=== PATIENT | female | born 1955 | race Caucasian/White ===

== ENCOUNTER 2016-04-07 14:27 | Outpatient (CLI) | payer BC | END 2016-04-07 14:28 | disposition home or self-care (01) | DX: F41.9 Anxiety disorder, unspecified (principal); N95.9 Unspecified menopausal and perimenopausal disorder; Z79.890 Hormone replacement therapy; E89.0 Postprocedural hypothyroidism ==

== ENCOUNTER 2016-05-05 15:49 | Outpatient (CLI) | payer BC | END 2016-05-05 15:50 | disposition home or self-care (01) | DX: M19.072 Primary osteoarthritis, left ankle and foot (principal) ==

== ENCOUNTER 2016-06-02 16:31 | Outpatient (CLI) | payer BC | END 2016-06-02 16:32 | disposition home or self-care (01) | DX: M50.321 Other cervical disc degeneration at C4-C5 level (principal); M47.812 Spondylosis without myelopathy or radiculopathy, cervical region; M25.511 Pain in right shoulder ==

== ENCOUNTER 2016-07-09 09:51 | Emergency (ER) | payer BC | END 2016-07-09 11:18 | disposition home or self-care (01) | DX: H53.9 Unspecified visual disturbance (principal); R03.0 Elevated blood-pressure reading, without diagnosis of hypertension; E03.9 Hypothyroidism, unspecified; F17.200 Nicotine dependence, unspecified, uncomplicated ==

== ENCOUNTER 2017-04-04 15:00 | Outpatient (CLI) | payer BC ==
--- NOTE | 2017-04-05 18:02 | XRAY Report ---
DATE OF SERVICE: 04/04/2017 TWO VIEW RIGHT RIBS: 04/04/2017 CLINICAL INDICATION: Pain. Oblique views of the right ribs were obtained, with a marker at the site of maximal tenderness. There is no evidence of a displaced rib fracture. No gross pneumothorax is seen. IMPRESSION: No evidence of a displaced rib fracture. TD: 04/05/2017 19:02
== END 2017-04-04 15:01 | disposition home or self-care (01) ==
LOC: DI 15:00
PROVIDERS: ATTEND Physician Assistant Medical
DX: R07.81 Pleurodynia (principal); M81.0 Age-related osteoporosis without current pathological fracture

== ENCOUNTER 2017-06-17 15:51 | Emergency (ER) | payer BC ==
[2017-06-17] MEDS ORDERED: LIDOCAINE VISCOUS 2% 15 ML UDC MM STA (16:23)
[2017-06-17] MEDS ORDERED: MAG HYDROX/AL HYDROX/SIMETH 30 ML UDC PO STA (16:23)
--- NOTE | 2017-06-17 16:25 | ED Physician Documentation ---
PD HPI ABD PAIN - Stated complaint Stated Complaint: ANXIETY/ABD PX - Chief complaint Chief Complaint: Abd Pain - History obtained from History obtained from: Patient, Family - History of Present Illness Timing - onset: Other (For the last several years she has had intermittent episodes of upper abdominal pain that come every month where she is basically debilitated by the pain and she starts crying. Pain is not radiating. She loses her appetite and feels scared to eat during these episodes but denies the pain actually getting worse after she eats. She is a little constipated because she has been taking Xanax and Pepto-Bismol but she is not losing weight. She has never had a colonoscopy.) Review of Systems Ten Systems: 10 systems reviewed and negative Constitutional: denies: Fever, Chills Cardiac: denies: Chest pain / pressure, Palpitations Respiratory: denies: Dyspnea, Cough GI: reports: Abdominal Pain, Nausea. 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 - Present Medications Home Medications: Ambulatory Orders Medication Instructions Recorded Confirmed ALPRAZolam [Xanax] 0.25 mg PO ONCE PRN 10/20/12 07/09/16 Thyroid,Pork [Nature-Throid] mg PO 07/09/16 Omeprazole [PriLOSEC] 20 mg PO DAILY #30 capsule 06/17/17 - Allergies Allergies/Adverse Reactions: Allergies Allergy/AdvReac Type Severity Reaction Status Date / Time No Known Drug Allergies Allergy Verified 06/17/17 16:16 - Social History Does the pt smoke?: Yes Smoking Status: Current every day smoker Does the pt drink ETOH?: No Does the pt have substance abuse?: No - Family History Family history: reports: Non contributory - POLST Patient has POLST: No PD ED PE NORMAL - Vitals Vital signs reviewed: Yes - General General: Alert and oriented X 3, No acute distress - HEENT HEENT: PERRL, EOMI, Ears normal, Moist mucous membranes, Pharynx benign - Neck Neck: Supple, no meningeal sign, No bony TTP - Cardiac Cardiac: RRR, No murmur - Respiratory Respiratory: No respiratory distress, Clear bilaterally - Abdomen Abdomen: Normal bowel sounds, Soft, Other (Mild epigastric TTP) - Back Back: No CVA TTP, No spinal TTP - Derm Derm: Normal color, Warm and dry - Extremities Extremities: No edema, No calf tenderness / cord - Neuro Neuro: Alert and oriented X 3, Normal speech - Psych Psych: Normal mood, Normal affect Results - Vitals Vitals: Vital Signs - 24 hr 06/17/17 06/17/17 06/17/17 16:03 17:25 18:24 Temperature 36.8 C Heart Rate 76 77 70 Respiratory 16 16 16 Rate Blood Pressure 175/81 H 151/82 H 155/81 H O2 Saturation 96 99 98 Oxygen O2 Source Room air - Labs Labs: Laboratory Tests 06/17/17 06/17/17 06/17/17 16:30 16:30 16:30 WBC 10.4 RBC 5.55 H Hgb 16.3 H Hct 47.7 H MCV 86.1 MCH 29.3 MCHC 34.1 RDW 13.4 Plt Count 259 MPV 7.3 L Neut # 6.0 Lymph # 3.5 [place] # 0.5 Eos # 0.3 Baso # 0.1 Absolute Nucleated RBC 0.00 Nucleated RBC % 0.0 Sodium 138 Potassium 3.4 L Chloride 103 Carbon Dioxide 25 Anion Gap 10.0 BUN 10 Creatinine 0.6 Estimated GFR (MDRD) 101 Glucose 96 Calcium 9.8 Total Bilirubin 0.5 AST 22 ALT 18 Alkaline Phosphatase 82 Troponin I < 0.04 Total Protein 8.1 Albumin 4.4 Globulin 3.7 Albumin/Globulin Ratio 1.2 Lipase 14 L - Rads (name of study) CT A?P Radiology: EMP read contemporaneously (Diverticulosis without diverticulitis, hepatic cysts and bilateral adrenal hypertrophy.) PD MEDICAL DECISION MAKING - ED course ED course: 61-year-old woman with recurrent upper abdominal pain with wide differential diagnosis, mild tenderness on examination and no real help with GI cocktail here. Workup negative except for polycythemia likely related to smoking and she was advised to stop. Departure - Departure Disposition: 01 Home, Self Care Clinical Impression: Polycythemia Abdominal pain Qualifiers: Abdominal location: epigastric Qualified Code(s): R10.13 - Epigastric pain Condition: Good Record reviewed to determine appropriate education?: Yes Instructions: ED Abdominal Pain Unkn Cause Prescriptions: Omeprazole [PriLOSEC] 20 mg PO DAILY #30 capsule Comments: Follow-up with your physician, ALEXANDER mcdermott and discuss upper and lower endoscopies. Return for new or worsening symptoms. Your blood pressure was elevated today on check into the emergency department. This does not mean that you have hypertension, it is a common phenomenon to come to the emergency department and have elevated blood pressure. I recommend that you see your primary care physician within the week to have it rechecked when you are feeling better.
[2017-06-17 16:40] LABS: BASOPHILS # (AUTO) 0.1 10^3/uL (0.0-0.1); EOSINOPHILS # (AUTO) 0.3 10^3/uL (0.0-0.7); EOSINOPHILS % (AUTO) 2.6 %; HGB - HEMOGLOBIN 16.3 g/dL (12.0-16.0); LYMPHOCYTES # (AUTO) 3.5 10^3/uL (1.5-3.5); LYMPHOCYTES % (AUTO) 34.1 %; MEAN CORPUSCULAR HEMOGLOBIN 29.3 pg (27.0-31.0); MEAN CORPUSCULAR HGB CONC 34.1 g/dL (32.0-36.0); MEAN CORPUSCULAR VOLUME 86.1 fL (81.0-99.0); MEAN PLATELET VOLUME 7.3 fL (7.9-10.8); MONOCYTES # (AUTO) 0.5 10^3/uL (0.0-1.0); MONOCYTES % (AUTO) 4.4 %; NEUTROPHILS % (AUTO) 57.9 %; PLT - PLATELET COUNT 259 10^3/uL (130-450); RED BLOOD COUNT 5.55 10^6/uL (4.20-5.40); RED CELL DISTRIBUTION WIDTH 13.4 % (12.0-15.0); WHITE BLOOD COUNT 10.4 x10^3/uL (4.8-10.8)
[2017-06-17] MEDS ORDERED: IOPAMIDOL-300 100 ML VIAL ONE (16:44)
[2017-06-17 16:52] LABS: ALBUMIN 4.4 g/dL (3.2-5.5); ALBUMIN/GLOBULIN RATIO 1.2 (1.0-2.2); BILIRUBIN,TOTAL 0.5 mg/dL (0.2-1.0); CALCIUM 9.8 mg/dL (8.5-10.3); CREATININE 0.6 mg/dL (0.4-1.0); TOTAL PROTEIN 8.1 g/dL (6.7-8.2)
[2017-06-17] MEDS ORDERED: IOPAMIDOL-300 100 ML VIAL IVP ONE (17:26)
--- NOTE | 2017-06-17 18:15 | CT Report ---
EXAM: CT ABDOMEN AND PELVIS EXAM DATE: 06/17/2017 05:20 PM. CLINICAL HISTORY: Persistent upper abdomen pain. COMPARISONS: None. TECHNIQUE: Routine helical CT imaging was performed through the abdomen and pelvis. IV contrast: 100 cc of Isovue-300. Enteric contrast: No. Reconstructions: Coronal and sagittal. In accordance with CT protocol optimization, one or more of the following dose reduction techniques w ere utilized for this exam: automated exposure control, adjustment of mA and/or KV based on patient s ize, or use of iterative reconstructive technique. FINDINGS: Lung Bases: Unremarkable. Liver: Multiple cysts up to 4.4 cm size. Gallbladder/Bile Ducts: Unremarkable. Spleen: Normal. Pancreas: Normal. Adrenal Glands: Bilateral hypertrophy. Kidneys: Normal. No masses or hydronephrosis. Peritoneal Cavity/Bowel: Mild diverticulosis. No free fluid, free air or adenopathy. No masses or acu te inflammatory process. The appendix is well visualized and normal. Pelvic Organs: Normal. The bladder and visualized pelvic organs are within normal limits. Vasculature: No aneurysms or other significant abnormality. Bones: No significant abnormality. Other: None. IMPRESSION: 1. Mild diverticulosis without diverticulitis or other acute bowel abnormality. 2. Multiple hepatic cysts. 3. Bilateral adrenal hypertrophy. [facility] Referring Provider Line: [phone] SITE ID: [id number]
[2017-06-17 18:25] VITALS: BP 155/81
== END 2017-06-17 18:53 | disposition home or self-care (01) ==
LOC: ED 15:51
DX: D75.1 Secondary polycythemia (principal); E03.9 Hypothyroidism, unspecified; R03.0 Elevated blood-pressure reading, without diagnosis of hypertension; F17.200 Nicotine dependence, unspecified, uncomplicated
CPT/HCPCS: 36415; 74177; 80053; 83690; 84484; 85025; 99283; 99284; A9270; Q9967

== ENCOUNTER 2018-07-02 06:58 | Emergency (ER) | payer BC ==
--- NOTE | 2018-07-02 07:19 | ED Physician Documentation ---
PD HPI HEENT - Stated complaint Stated Complaint: DIZZY - Chief complaint Chief Complaint: Neuro - History obtained from History obtained from: Patient - History of Present Illness Timing - onset: Yesterday (and worse today when getting up) Timing - details: Abrupt onset, Still present Location: Other (feeling of vertigo with head movement. Had some headache left side around ear yesterday. Chronic tinnitus right ear not changed.) Improves: Other (holding still) Worsens: Position (moving of head) Associated symptoms: Congestion, Headache (yesterday left side of head), Other (feeling off balance with walking. Does not feel fumbly with hand movements otherwise.). No: Fever, Rhinorrhea, Swollen nodes, Facial swelling Similar symptoms before: Has not had sx before Recently seen: Not recently seen Review of Systems Constitutional: denies: Fever, Chills, Myalgias Ears: reports: Tinnitus/ringing (right ear chronically) Nose: denies: Rhinorrhea / runny nose, Congestion Throat: denies: Sore throat Respiratory: denies: Dyspnea, Cough GI: reports: Nausea (with the vertigo). 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 - Present Medications Home Medications: Ambulatory Orders Medication Instructions Recorded Confirmed ALPRAZolam [Xanax] 0.25 mg PO ONCE PRN 10/20/12 07/09/16 Thyroid,Pork [Nature-Throid] mg PO 07/09/16 Omeprazole [PriLOSEC] 20 mg PO DAILY #30 capsule 06/17/17 Cephalexin [Keflex] 500 mg PO TID #21 capsule 07/02/18 Dexamethasone [Decadron] 4 mg PO DAILY #5 tablet 07/02/18 Meclizine HCl [Motion Sickness 25 mg PO Q6H PRN #30 tablet 07/02/18 Relief] - Allergies Allergies/Adverse Reactions: Allergies Allergy/AdvReac Type Severity Reaction Status Date / Time No Known Drug Allergies Allergy Verified 06/17/17 16:16 - Social History Does the pt smoke?: Yes Smoking Status: Current every day smoker Does the pt drink ETOH?: No Does the pt have substance abuse?: No - POLST Patient has POLST: No PD ED PE NORMAL - Vitals Vital signs reviewed: Yes - General General: Alert and oriented X 3, Well developed/nourished - HEENT HEENT: PERRL, EOMI (with nystagmus noted to the left), Ears normal, Moist mucous membranes, Pharynx benign - Neck Neck: Supple, no meningeal sign, No adenopathy - Cardiac Cardiac: RRR, No murmur - Respiratory Respiratory: No respiratory distress, Clear bilaterally - Abdomen Abdomen: Soft, Non tender - Back Back: No CVA TTP - Derm Derm: Normal color, Warm and dry, No rash - Extremities Extremities: No tenderness to palpate, Normal ROM s pain - Neuro Neuro: Alert and oriented X 3, road crossing guard 2-12 intact, No motor deficit, No sensory deficit, Normal speech, Other (normal snuff maker and fine motor activity of hands. Does not seem fumbly. ) Results - Vitals Vitals: Oxygen O2 Source Room air - Labs Labs: Laboratory Tests 07/02/18 07/02/18 07/02/18 07:08 07:08 07:08 WBC 7.6 RBC 5.13 Hgb 15.3 Hct 45.9 MCV 89.5 MCH 29.8 MCHC 33.2 RDW 13.2 Plt Count 241 MPV 8.3 Neut # (Auto) 3.3 Lymph # (Auto) 3.4 [place] # (Auto) 0.4 Eos # (Auto) 0.4 Baso # (Auto) 0.1 Absolute Nucleated RBC 0.00 Nucleated RBC % 0.0 ESR 3 Sodium 136 Potassium 3.6 Chloride 100 L Carbon Dioxide 26 Anion Gap 10.0 BUN 22 H Creatinine 0.6 Estimated GFR (MDRD) 101 Glucose 109 H Calcium 9.3 Total Bilirubin 0.5 AST 25 ALT 20 Alkaline Phosphatase 74 Total Protein 7.8 Albumin 4.3 Globulin 3.5 Albumin/Globulin Ratio 1.2 Lipase 36 - Rads (name of study) head CT Radiology: Prelim report reviewed (some mastoid fluid, sinus mucosal thickening. ) PD MEDICAL DECISION MAKING - ED course Complexity details: considered differential (sounds like peripheral vertigo. Had headache left side yesterday, so CT done to look for mass effect, bleeding and this was negative. It did show mastoid fluid and sinusitis. So presume some labrynthitis. As such, Korina's would not be of benefit. ), d/w patient Departure - Departure Disposition: 01 Home, Self Care Clinical Impression: Vertigo Sinusitis, acute Qualifiers: Sinusitis location: unspecified location Recurrence: non-recurrent Qualified Code(s): J01.90 - Acute sinusitis, unspecified Condition: Stable Record reviewed to determine appropriate education?: Yes Instructions: ED Vertigo Unspecified Follow-Up: Imelda Saini ND [Primary Care Provider] - Prescriptions: Cephalexin [Keflex] 500 mg PO TID #21 capsule Dexamethasone [Decadron] 4 mg PO DAILY #5 tablet Meclizine HCl [Motion Sickness Relief] 25 mg PO Q6H PRN #30 tablet PRN Reason: Vertigo Comments: The scan showed some inflammation of the sinuses. There was a little bit of fluid in the mastoid area on the left. I presume there is some inflammation as well in the inner ear causing your symptoms (labrynthitis). Use meclizine every 6-8 hours if needed for dizziness. Usesome Decadron daily for 5 days for inflammation. I presume there is some element of infection to it as well so the cephalexin for a week. Use probiotics concurrently to minimize the stomach upset. Stay well-hydrated. Recheck if not improving over the next few days. Discharge Date/Time: 07/02/18 09:45
[2018-07-02] MEDS ORDERED: MECLIZINE 12.5 MG TABLET PO STA (07:43)
[2018-07-02] MEDS ORDERED: DEXAMETHASONE 10 MG/ML VIAL IVP STA (07:43)
[2018-07-02 07:50] LABS: BASOPHILS # (AUTO) 0.1 10^3/uL (0.0-0.1); BASOPHILS % (AUTO) 0.9 %; EOSINOPHILS # (AUTO) 0.4 10^3/uL (0.0-0.7); EOSINOPHILS % (AUTO) 5.7 %; HGB - HEMOGLOBIN 15.3 g/dL (12.0-16.0); LYMPHOCYTES # (AUTO) 3.4 10^3/uL (1.5-3.5); LYMPHOCYTES % (AUTO) 45.1 %; MEAN CORPUSCULAR HEMOGLOBIN 29.8 pg (27.0-31.0); MEAN CORPUSCULAR HGB CONC 33.2 g/dL (32.0-36.0); MEAN CORPUSCULAR VOLUME 89.5 fL (81.0-99.0); MEAN PLATELET VOLUME 8.3 fL (7.9-10.8); MONOCYTES # (AUTO) 0.4 10^3/uL (0.0-1.0); MONOCYTES % (AUTO) 4.8 %; NEUTROPHILS # (AUTO) 3.3 10^3/uL (1.5-6.6); NEUTROPHILS % (AUTO) 43.5 %; PLT - PLATELET COUNT 241 10^3/uL (130-450); RED BLOOD COUNT 5.13 10^6/uL (4.20-5.40); RED CELL DISTRIBUTION WIDTH 13.2 % (12.0-15.0); WHITE BLOOD COUNT 7.6 x10^3/uL (4.8-10.8)
[2018-07-02 08:02] LABS: ALBUMIN 4.3 g/dL (3.2-5.5); ALBUMIN/GLOBULIN RATIO 1.2 (1.0-2.2); BILIRUBIN,TOTAL 0.5 mg/dL (0.2-1.0); CALCIUM 9.3 mg/dL (8.5-10.3); CREATININE 0.6 mg/dL (0.4-1.0); TOTAL PROTEIN 7.8 g/dL (6.7-8.2)
--- NOTE | 2018-07-02 08:40 | CT Report ---
Reason: headache yesterday; dizzy today Procedure Date: 07/02/2018 Accession Number: [id number] / [id number] Procedure: CT - HEAD WO CPT Code: FULL RESULT: EXAM: CT HEAD EXAM DATE: 07/02/2018 08:25 AM. CLINICAL HISTORY: Headache yesterday; dizzy today. COMPARISON: None. TECHNIQUE: Multiaxial CT images were obtained from the foramen magnum to the vertex. Reformats: Sagittal and coronal. IV contrast: None. In accordance with CT protocol optimization, one or more of the following dose reduction techniques were utilized for this exam: automated exposure control, adjustment of mA and/or KV based on patient size, or use of iterative reconstructive technique. FINDINGS: Parenchyma: No intraparenchymal hemorrhage. No evidence of mass, midline shift, or CT findings of infarction. Will-white differentiation is distinct. Extraaxial Spaces: Prominent subarachnoid space along the frontal lobes bilaterally. No subdural or epidural collections identified. Ventricles: Normal in size and position. Sinuses and Orbits: Mucosal thickening in the bilateral ethmoid and right sphenoid sinus. . There is a small amount of fluid in the left mastoid tip Bones: No evidence of fracture or calvarial defect. Other: Calcified subcutaneous nodule posterior right scalp. IMPRESSION: 1. No acute bleed, no acute infarct. [facility]
[2018-07-02] MEDS ORDERED: cephALEXin 250 MG CAPSULE PO STA (09:26)
[2018-07-02 09:33] VITALS: BP 139/61
== END 2018-07-02 09:45 | disposition home or self-care (01) ==
LOC: ED 06:58
DX: J01.90 Acute sinusitis, unspecified (principal); E03.9 Hypothyroidism, unspecified; F17.200 Nicotine dependence, unspecified, uncomplicated
CPT/HCPCS: 36415; 70450; 80053; 83690; 85025; 85651; 93005; 96374; 99284; A9270

== ENCOUNTER 2018-07-08 13:05 | Outpatient (CLI) | payer BC ==
--- NOTE | 2018-07-08 15:42 | XRAY Report ---
Reason: LOW BACK PAIN Procedure Date: 07/08/2018 Accession Number: [id number] / [id number] Procedure: XR - Lumbar Spine 2 View CPT Code: FULL RESULT: EXAM: LUMBOSACRAL SPINE RADIOGRAPHY EXAM DATE: 07/08/2018 01:34 PM. CLINICAL HISTORY: Low back pain. COMPARISONS: LUMBAR SPINE COMPLETE 09/25/2012 1:02 PM. TECHNIQUE: 2 views. FINDINGS: Alignment: Interval development of minimal thoracolumbar scoliosis, dextroconvex centered about L1-L2. No listhesis. Bones: The bones are qualitatively osteopenic; this limits evaluation for underlying fractures or masses. Five [id number] lumbar vertebral bodies are present. No fractures or bone lesions. Disks: Normal. Disk heights are maintained. Facets: Moderate facet arthropathy predominantly at L5. Sacroiliac Joints: Unremarkable. Soft Tissues: Aortic calcifications. IMPRESSION: Degenerative changes as described. [facility]
== END 2018-07-08 13:06 | disposition home or self-care (01) ==
LOC: DI 13:05
PROVIDERS: ATTEND Naturopath
DX: M41.85 Other forms of scoliosis, thoracolumbar region (principal); M85.88 Other specified disorders of bone density and structure, other site
CPT/HCPCS: 72100

== ENCOUNTER 2019-05-15 23:25 | Emergency (ER) | payer BC ==
[2019-05-15 23:34] VITALS: BP 128/87
--- NOTE | 2019-05-15 23:42 | ED Physician Documentation ---
History of Present Illness - Stated complaint Stated Complaint: COUGH/CONGESTION - Chief complaint Chief Complaint: Resp - Additonal information Additional information: This is a 63-year-old female with a history of hypothyroidism after thyroid radiation for Graves' disease, who presents with right-sided lower rib pain after coughing. Patient developed a cough 4 days ago, has been productive of some clear to light yellow sputum, she is felt a bit congested as well, but overall felt she was managing well at home, until earlier today she had a coughing fit and developed some sharp pain on her right lower anterior ribs. She was at rest she has no pain but if she pushes in on the spot or if she coughs she has a sharp jolt of pain in the area. She has no central or left- sided chest pain. No leg swelling or redness. No hemoptysis. 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 - Present Medications Home Medications: Ambulatory Orders Medication Instructions Recorded Confirmed Thyroid,Pork [Nature-Throid] 32.5 mg PO DAILY 07/09/16 Doxycycline Hyclate 100 mg PO BID #14 capsule 05/16/19 - Allergies Allergies/Adverse Reactions: Allergies Allergy/AdvReac Type Severity Reaction Status Date / Time ciprofloxacin [From Cipro] AdvReac Nausea Verified 05/15/19 23:38 - Social History Does the pt smoke?: Yes Smoking Status: Current every day smoker Does the pt drink ETOH?: No Does the pt have substance abuse?: No - POLST Patient has POLST: No PD ED PE NORMAL - Vitals Vital signs reviewed: Yes - General General: Alert and oriented X 3, No acute distress - HEENT HEENT: PERRL - Neck Neck: Supple, no meningeal sign - Cardiac Cardiac: RRR, No murmur - Respiratory Respiratory: No respiratory distress, Clear bilaterally, Other (Intermittent cough, when she coughs she appears uncomfortable. There is reproducible te nderness in the right lower anterior ribs. No rash or bruising.) - Abdomen Abdomen: Normal bowel sounds, Soft, Non tender, Non distended - Derm Derm: Warm and dry - Extremities Extremities: No deformity - Neuro Neuro: Alert and oriented X 3 - Psych Psych: Normal mood, Normal affect Results - Vitals Vitals: Vital Signs - 24 hr 05/15/19 23:25 Temperature 37.3 C Heart Rate 99 Respiratory 18 Rate Blood Pressure 128/87 H O2 Saturation 96 Oxygen O2 Source Room air PD MEDICAL DECISION MAKING - ED course Complexity details: considered differential (Rib contusion, rib fracture, pneumothorax, muscle strain, pneumonia, URI) ED course: On arrival patient is nontoxic-appearing, vital signs are unremarkable and she is saturating well on room air, she has breath sounds present bilaterally and she has reproducible tenderness over the right anterior lower ribs. PE was considered, however patient's pain only occurs when she coughs, and she is reproducible point tenderness in the region, additionally her heart rate and oxygen saturation are excellent, and she has no signs of DVT. This appears to be musculoskeletal. She has no central or left-sided chest pain, her symptoms and history are not consistent with ACS. X-ray of the chest was obtained and shows No displaced rib fracture or pneumothorax, there is a lingular infiltrate. I do not think that the lingular infiltrate is the primary cause of patient's pain given that she has reproducible focal tenderness on her lower anterior ribs and her pain is only present when she is coughing. She likely has a small nondisplaced rib fracture or inflammation of the chest wall, in addition to this lingular infiltrate. I discussed these findings with the patient, and also discussed pain control, she strongly would like to avoid any NSAIDs, Stronger pain medications, or muscle relaxants such as methocarbamol She will continue to use her Tylenol and lidocaine on The region of pain. I also prescribed doxycycline for the lingular infiltrate. I discussed PCP follow-up as well as return precautions and patient was discharged home in good condition in the care of her Departure - Departure Disposition: 01 Home, Self Care Clinical Impression: Rib pain on right side Pneumonia Qualifiers: Pneumonia type: due to unspecified organism Laterality: right Lung location: unspecified part of lung Qualified Code(s): J18.9 - Pneumonia, unspecified organism Condition: Good Follow-Up: Imelda Saini ND [Primary Care Provider] - Prescriptions: Doxycycline Hyclate 100 mg PO BID #14 capsule Comments: You were seen today for pain in your right lower chest. Your x-ray did not show signs of displaced rib fractures or a collapsed lung, but it did show what appears to be early pneumonia in the lung. As we discussed, please continue to use the Tylenol and lidocaine for your chest discomfort, The goal is to get adequate pain control that you are able to take deep breaths. I am prescribing a course of antibiotics for the pneumonia. If you are having worsening symptoms such as difficulty breathing, coughing up blood, or worsening/changing chest pain, return to the emergency department.
--- NOTE | 2019-05-16 00:22 | XRAY Report ---
Reason: cough, R lower rib pain after coughing fit Procedure Date: 05/16/2019 Accession Number: [id number] / [id number] Procedure: XR - Chest 2 View X-Ray CPT Code: 79065 Final Report FULL RESULT: EXAM: CHEST RADIOGRAPHY EXAM DATE: 05/16/2019 12:05 AM. CLINICAL HISTORY: Cough, R lower rib pain after coughing fit. COMPARISON: RIBS 2 VIEW RT 04/04/2017 3:05 PM CHEST 2 VIEW PA/LAT 06/04/2014 11:58 AM. TECHNIQUE: 2 views. FINDINGS: Lungs/Pleura: Patchy lingular infiltrate. No effusion or pneumothorax. Mediastinum: Heart and mediastinal contours are unremarkable. Other: None. IMPRESSION: Patchy lingular infiltrate. [facility]
== END 2019-05-16 01:00 | disposition home or self-care (01) ==
LOC: ED 23:25
DX: R07.81 Pleurodynia (principal); J18.9 Pneumonia, unspecified organism; F17.200 Nicotine dependence, unspecified, uncomplicated
CPT/HCPCS: 71046; 99283; 99284

== ENCOUNTER 2019-10-10 15:58 | Outpatient (CLI) | payer BC ==
--- NOTE | 2019-10-10 17:12 | XRAY Report ---
PROCEDURE: Chest 2 View X-Ray INDICATIONS: SHORTNESS OF BREATH TECHNIQUE: 2 view(s) of the chest. COMPARISON: CT chest 05/15/2019 FINDINGS: Surgical changes and devices: None. Lungs and pleura: No pleural effusions or pneumothorax. Lungs are clear. Mediastinum: Mediastinal contours are normal. Heart size is normal. Bones and chest wall: No suspicious bony abnormalities. Soft tissues appear unremarkable. IMPRESSION: No acute pulmonary process. Reviewed by: Kaleigh Elizalde MD on 10/10/2019 5:11 PM PDT Approved by: Kaleigh Elizalde MD on 10/10/2019 5:11 PM PDT Station ID: [id number]
== END 2019-10-10 15:59 | disposition home or self-care (01) ==
LOC: DI 15:58
PROVIDERS: ATTEND Naturopath
DX: R06.02 Shortness of breath (principal)
CPT/HCPCS: 71046

== ENCOUNTER 2020-12-10 08:30 | Emergency (ER) | payer BC, MEDICARE, OTHER ==
--- NOTE | 2020-12-10 08:47 | ED Physician Documentation ---
PD HPI BACK PAIN - Stated complaint Stated Complaint: LOW BACK PX - Chief complaint Chief Complaint: Back Pain - History obtained from History obtained from: Patient - History of Present Illness Timing - onset: Today Timing - duration: Hours Timing - details: Intermittant (has had pain lower thoracic back below scapula intermittently for awhile. No noted trauma. Today had it worse and persistent, with upper abd pain as well.) Location: Mid, Right Quality: Pain, Sharp, Aching Associated symptoms: No: Fever, Weakness, Numbness Worsened by: No: Movement, Twisting Contributing factors: No: Lifting, Twisting, Trauma Similar symptoms before: No diagnosis (intermittent pains without pattern of movement, position, eating intermittently.) Recently seen: Not recently seen Review of Systems Constitutional: denies: Fever, Chills Nose: denies: Rhinorrhea / runny nose, Congestion Throat: denies: Sore throat Cardiac: denies: Chest pain / pressure, Palpitations Respiratory: denies: Dyspnea, Cough, Wheezing GI: reports: Abdominal Pain. 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 - Present Medications Home Medications: Ambulatory Orders Medication Instructions Recorded Confirmed Thyroid,Pork [Nature-Throid] 32.5 mg PO DAILY 07/09/16 Doxycycline Hyclate 100 mg PO BID #14 capsule 05/16/19 - Allergies Allergies/Adverse Reactions: Allergies Allergy/AdvReac Type Severity Reaction Status Date / Time ciprofloxacin [From Cipro] AdvReac Nausea Verified 12/10/20 08:45 - Social History Does the pt smoke?: Yes Smoking Status: Current every day smoker Does the pt drink ETOH?: No Does the pt have substance abuse?: No - Immunizations Immunizations are current?: No - POLST Patient has POLST: No PD ED PE NORMAL - Vitals Vital signs reviewed: Yes - General General: Alert and oriented X 3, No acute distress, Well developed/nourished - HEENT HEENT: Pharynx benign - Neck Neck: Supple, no meningeal sign, No adenopathy - Cardiac Cardiac: RRR, No murmur - Respiratory Respiratory: Clear bilaterally - Abdomen Abdomen: Normal bowel sounds, Soft, Non distended, No organomegaly, Other (tenderness epigastric and RUQ area without guarding nor percussion tenderness. ) - Female Female : Deferred - Rectal Rectal: Deferred - Back Back: No CVA TTP - Derm Derm: Normal color, Warm and dry, No rash - Neuro Neuro: Alert and oriented X 3, No motor deficit, Normal speech Results - Vitals Vitals: Oxygen O2 Source Room air - Labs Labs: Laboratory Tests 12/10/20 12/10/20 09:26 09:26 Sodium 140 Potassium 3.9 Chloride 102 Carbon Dioxide 26 Anion Gap 12.0 BUN 15 Creatinine 0.7 Estimated GFR (MDRD) 84 L Glucose 108 H Calcium 9.5 Total Bilirubin 0.4 AST 21 ALT 16 Alkaline Phosphatase 73 Troponin I High Sens 4.5 Total Protein 7.8 Albumin 4.5 Globulin 3.3 Albumin/Globulin Ratio 1.4 Lipase 33 - Rads (name of study) RUQ Abd U/S Radiology: Prelim report reviewed (benign GB polyps. No stones. No acute process. ), See rad report PD MEDICAL DECISION MAKING - ED course Complexity details: reviewed results, considered differential (her pain is intermittent and right lower thoracic, with some RUQ abd pain/tender as well. Consider GB process, pancreatic, kidney, versus musculoskeletal. ), d/w patient Departure - Departure Disposition: 01 Home, Self Care Clinical Impression: Acute thoracic back pain Qualifiers: Back pain laterality: unspecified Qualified Code(s): M54.6 - Pain in thoracic spine Condition: Stable Record reviewed to determine appropriate education?: Yes Instructions: ED Sprain Thoracic Spine Comments: Your EKG and troponin blood tests are normal so no signs of heart attack. Your blood tests and ultrasound are normal so no signs of pancreas liver or gallbladder problems nor kidney inflammation. At this point I would presume some musculoskeletal back pain. Physical treatments such as massage or chiropractic are good. [id number] medications of Tylenol or ibuprofen can be helpful as well. Heat and stretching. I would anticipate improvement with the above measures over several days or so. Recheck if worsening or other symptoms develop. Discharge Date/Time: 12/10/20 11:17
[2020-12-10] MEDS ORDERED: ACETAMINOPHEN 325 MG TABLET PO STA (09:19)
[2020-12-10] MEDS ORDERED: IBUPROFEN 600 MG TABLET PO STA (09:19)
[2020-12-10 09:47] LABS: ALBUMIN 4.5 g/dL (3.2-5.5); ALBUMIN/GLOBULIN RATIO 1.4 (1.0-2.2); BILIRUBIN,TOTAL 0.4 mg/dL (0.2-1.0); CALCIUM 9.5 mg/dL (8.5-10.3); CREATININE 0.7 mg/dL (0.4-1.0); POTASSIUM 3.9 mmol/L (3.5-5.0); TOTAL PROTEIN 7.8 g/dL (6.7-8.2)
[2020-12-10 10:40] VITALS: BP 168/88
--- NOTE | 2020-12-10 10:41 | Ultrasound Report ---
PROCEDURE: Abdomen Limited INDICATIONS: right upper abd to back pain TECHNIQUE: Real-time focused scanning was performed of the abdomen, with image documentation. COMPARISON: CT abdomen dated 06/17/2017. FINDINGS: The liver measures 15.9 cm in length. Echotexture is coarse. In the left lobe there is a cyst measuri ng 11 x 9 x 10 mm. In the right lobe of the liver posterolaterally there is a 26 x 26 x 28 mm cyst. I n the right lobe laterally midportion there is a 24 x 18 x 28 mm cyst. A hyperechoic foci in the midd le right lobe measures 22 x 19 x 21 mm likely a hemangioma and corresponds with a CT on 06/17/2017. Gallbladder: No stones. A 2 x 2 x 2 mm polyp is seen anteriorly and a 3 x 1 x 3 mm polyp is seen post eriorly. Biliary tree: Normal. Pancreas: The head, body, and tail are visualized and appear normal. Kidneys: Normal size and appearance without hydronephrosis or stones. IMPRESSION: 1. No acute abnormality. 2. Hepatic steatosis. 3. Multiple hepatic cysts and a hepatic hemangioma. 4. Benign gallbladder polyps. Reviewed by: Efraín Hernandez on 12/10/2020 10:39 AM PDT Approved by: Efraín Hernandez on 12/10/2020 10:39 AM PDT Station ID: [id number]
== END 2020-12-10 11:17 | disposition home or self-care (01) ==
LOC: ED 08:30
DX: M54.6 Pain in thoracic spine (principal); F17.200 Nicotine dependence, unspecified, uncomplicated
CPT/HCPCS: 36415; 80053; 83690; 84484; 93005; 99282; 99284

== ENCOUNTER 2021-09-28 15:07 | Emergency (ER) | payer MEDICARE ==
--- NOTE | 2021-09-28 16:23 | ED Physician Documentation ---
History of Present Illness - Stated complaint Stated Complaint: ANXIETY - Chief complaint Chief Complaint: MHE - History obtained from History obtained from: Patient - Additonal information Additional information: 65-year-old woman with longstanding anxiety. She did not have good response to SSRI/SNRI in the past. On occasion she will take a quarter of a 0.25 Xanax and that is helpful. Last prescription was about a year ago. Denies SI or HI. Here because her anxiety is worse and she would like a refill. 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 - Present Medications Home Medications: Ambulatory Orders Medication Instructions Recorded Confirmed Thyroid,Pork [Nature-Throid] 32.5 mg PO DAILY 07/09/16 Doxycycline Hyclate 100 mg PO BID #14 capsule 05/16/19 ALPRAZolam [Xanax] 0.25 tab PO Q6H PRN #10 tablet 09/28/21 - Allergies Allergies/Adverse Reactions: Allergies Allergy/AdvReac Type Severity Reaction Status Date / Time ciprofloxacin [From Cipro] AdvReac Nausea Verified 09/28/21 15:37 - Social History Does the pt smoke?: Yes Smoking Status: Current every day smoker Does the pt drink ETOH?: No Does the pt have substance abuse?: No - Immunizations Immunizations are current?: No - POLST Patient has POLST: No PD ED PE NORMAL - Vitals Vital signs reviewed: Yes - General General: Alert and oriented X 3, No acute distress - HEENT HEENT: PERRL, EOMI - Neck Neck: Supple, no meningeal sign, No bony TTP - Cardiac Cardiac: RRR, No murmur - Respiratory Respiratory: No respiratory distress, Clear bilaterally - Abdomen Abdomen: Non tender - Derm Derm: Normal color, Warm and dry - Extremities Extremities: No edema, No calf tenderness / cord - Neuro Neuro: Alert and oriented X 3, Normal speech Results - Vitals Vitals: Vital Signs - 24 hr 09/28/21 09/28/21 15:31 16:24 Temperature 37.1 C Heart Rate 100 67 Respiratory 18 17 Rate Blood Pressure 147/96 H 149/83 H O2 Saturation 96 97 Oxygen O2 Source Room air PD MEDICAL DECISION MAKING - ED course ED course: 65-year-old woman presents with anxiety and requests short prescription for Xanax at which she takes a very low-dose. No evidence of emergency medical condition. Departure - Departure Disposition: Home, Self Care Clinical Impression: Anxiety Condition: Good Record reviewed to determine appropriate education?: Yes Instructions: ED Panic Attack Prescriptions: ALPRAZolam [Xanax] 0.25 tab PO Q6H PRN #10 tablet PRN Reason: Anxiety Comments: I sent your prescription electronically to the [facility] pharmacy at the corner of [address] [place] [address] [address] here in [place]. Do not drink or drive while taking prescription Xanax/alprazolam. Return for new or worsening symptoms. Follow-up with your primary care physician, next available appointment for reevaluation. Also consideration for referral for counseling. Discharge Date/Time: 09/28/21 16:30
[2021-09-28 16:27] VITALS: BP 149/83
== END 2021-09-28 16:30 | disposition home or self-care (01) ==
LOC: ED 15:07
DX: F41.9 Anxiety disorder, unspecified (principal); F17.200 Nicotine dependence, unspecified, uncomplicated
CPT/HCPCS: 99282; 99283

== ENCOUNTER 2021-10-18 10:11 | Emergency (ER) | payer MEDICARE ==
[2021-10-18 10:25] VITALS: BP 144/84
== END 2021-10-18 11:27 | disposition left against medical advice (07) ==
LOC: ED 10:11
DX: Z53.21 Procedure and treatment not carried out due to patient leaving prior to being seen by health care provider (principal)

== ENCOUNTER 2022-10-17 14:00 | Emergency (ER) | payer MEDICARE ==
--- NOTE | 2022-10-17 14:25 | ED Physician Documentation ---
History of Present Illness - Stated complaint Stated Complaint: DEHYDRATION,VISION/BALANCE - Chief complaint Chief Complaint: General - History obtained from History obtained from: Patient - Additonal information Additional information: 66-year-old woman with chronic anxiety and hypothyroidism presents for the evaluation of symptoms that she thinks are related due to dehydration "after consulting with Dr. Abdullahi." She says for the last month she has had dry eyes and dry mouth. 3 days ago everything tasted salty. She has dizziness and feels off balance. She notes her has very similar symptoms. She had her thyroid level checked about A week ago and her PCP is managing that. 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 - Present Medications Home Medications: Ambulatory Orders Medication Instructions Recorded Confirmed ALPRAZolam [Xanax] 0.25 tab PO Q6H PRN #10 tablet 09/28/21 10/18/21 Levothyroxine Sodium 50 mcg PO DAILY 10/18/21 10/18/21 [Levothyroxine] Levothyroxine Sodium [Synthroid] 50 mcg PO DAILY 10/17/22 10/17/22 - Allergies Allergies/Adverse Reactions: Allergies Allergy/AdvReac Type Severity Reaction Status Date / Time ciprofloxacin [From Cipro] AdvReac Nausea Verified 10/17/22 14:09 - Social History Does the pt smoke?: Yes Smoking Status: Current every day smoker Does the pt drink ETOH?: No Does the pt have substance abuse?: No - Immunizations Immunizations are current?: No - POLST Patient has POLST: No PD ED PE NORMAL - Vitals Vital signs reviewed: Yes - General General: Alert and oriented X 3, No acute distress - HEENT HEENT: PERRL, EOMI, Pharynx benign - Neck Neck: Supple, no meningeal sign, No bony TTP - Cardiac Cardiac: RRR, No murmur - Respiratory Respiratory: No respiratory distress, Clear bilaterally - Abdomen Abdomen: Non tender - Derm Derm: Normal color, Warm and dry - Extremities Extremities: No edema, No calf tenderness / cord - Neuro Neuro: Alert and oriented X 3, Normal speech, Other (normal gait) Eye Opening: Spontaneous Motor: Obeys Commands Verbal: Oriented GCS Score: 15 - Psych Psych: Normal mood, Normal affect Results - Vitals Vitals: Vital Signs - 24 hr 10/17/22 14:09 Temperature 36.5 C Heart Rate 77 Respiratory 16 Rate Blood Pressure 150/88 H O2 Saturation 99 Oxygen O2 Source Room air - Labs Labs: Laboratory Tests 10/17/22 10/17/22 10/17/22 14:41 14:41 14:41 WBC 9.7 RBC 5.38 Hgb 16.0 Hct 47.8 H MCV 88.8 MCH 29.7 MCHC 33.5 RDW 12.4 Plt Count 237 MPV 9.0 Neut # (Auto) 6.7 H Lymph # (Auto) 2.2 Gem # (Auto) 0.5 Eos # (Auto) 0.2 Baso # (Auto) 0.1 Absolute Nucleated RBC 0.00 Nucleated RBC % 0.0 VBG Total Hgb 17.2 VBG Oxyhemoglobin 42 L VBG Carboxyhemoglobin 10.1 H VBG Methemoglobin 0.3 Sodium 138 Potassium 4.4 Chloride 104 Carbon Dioxide 27 Anion Gap 7.0 BUN 11 Creatinine 0.7 Estimated GFR (MDRD) 83 L Glucose 83 Calcium 10.1 Magnesium 1.9 Total Bilirubin 0.6 AST 17 ALT 11 Alkaline Phosphatase 69 Total Protein 7.7 Albumin 4.6 Globulin 3.1 Albumin/Globulin Ratio 1.5 PD Medical Decision Making - ED course ED course: 66-year-old woman presents with nonspecific symptoms of dry mouth, dry eyes, feeling off balance. States her has similar symptoms. They have electric heat in the house but she is a heavy smoker. She was worried about dehydration but there is really no reason to expect this otherwise from her symptoms. CBC is unremarkable save mild polycythemia which is a chronic finding for her and is likely related to her smoking. CMP is normal. Carbon monoxide level is 10.1 which is slightly higher than we would expect even for heavy smoker. She understands that she will not enter the house again until they get a carbon monoxide detector and installed. Departure - Departure Disposition: 01 Home, Self Care Clinical Impression: Dizziness, Dry mouth and eyes, Inadequate carbon monoxide detection equipment in residence, Toxic effect of carbon monoxide from unspecified source, undetermined, sequela Condition: Good Record reviewed to determine appropriate education?: Yes Instructions: ED CO Poisoning Comments: As discussed, your work-up was basically normal with the exception of a carbon monoxide level of 10% which is little higher than we would expect even in a heavy smoker. Given that you have electric heat and it is September it is unlikely to be from another source but I would recommend you not enter your house again until you get a carbon monoxide detector and install it. If it alarms call the fire department for evaluation of the source. Return if worse. Forms: PCP List
[2022-10-17 14:47] LABS: BASOPHILS # (AUTO) 0.1 10^3/uL (0.0-0.1); BASOPHILS % (AUTO) 0.8 %; EOSINOPHILS # (AUTO) 0.2 10^3/uL (0.0-0.7); EOSINOPHILS % (AUTO) 2.3 %; HCT - HEMATOCRIT 47.8 % (37.0-47.0); LYMPHOCYTES # (AUTO) 2.2 10^3/uL (1.5-3.5); LYMPHOCYTES % (AUTO) 22.9 %; MEAN CORPUSCULAR HEMOGLOBIN 29.7 pg (27.0-31.0); MEAN CORPUSCULAR HGB CONC 33.5 g/dL (32.0-36.0); MEAN CORPUSCULAR VOLUME 88.8 fL (81.0-99.0); MONOCYTES # (AUTO) 0.5 10^3/uL (0.0-1.0); MONOCYTES % (AUTO) 4.7 %; NEUTROPHILS # (AUTO) 6.7 10^3/uL (1.5-6.6); NEUTROPHILS % (AUTO) 69.1 %; PLT - PLATELET COUNT 237 10^3/uL (130-450); RED BLOOD COUNT 5.38 10^6/uL (4.20-5.40); RED CELL DISTRIBUTION WIDTH 12.4 % (12.0-15.0); WHITE BLOOD COUNT 9.7 x10^3/uL (4.8-10.8)
[2022-10-17 14:49] LABS: CARBOXYHEMOGLOBIN VENOUS 10.1 % (0-1.5); HEMOGLOBIN TOTAL, VENOUS WB 17.2 g/dL (12.0-18.0); METHEMOGLOBIN VENOUS 0.3 % (0-1.5)
[2022-10-17 15:08] LABS: ALBUMIN 4.6 g/dL (3.2-5.5); ALBUMIN/GLOBULIN RATIO 1.5 (1.0-2.2); BILIRUBIN,TOTAL 0.6 mg/dL (0.2-1.0); CALCIUM 10.1 mg/dL (8.5-10.3); CREATININE 0.7 mg/dL (0.6-1.3); MAGNESIUM 1.9 mg/dL (1.7-2.3); POTASSIUM 4.4 mmol/L (3.5-4.5); TOTAL PROTEIN 7.7 g/dL (6.4-8.9)
[2022-10-17 15:37] VITALS: BP 146/68
== END 2022-10-17 15:41 | disposition home or self-care (01) ==
LOC: ED 14:00
DX: R42 Dizziness and giddiness (principal); R68.2 Dry mouth, unspecified; T58.91XA Toxic effect of carbon monoxide from unspecified source, accidental (unintentional), initial encounter; E03.9 Hypothyroidism, unspecified; F17.200 Nicotine dependence, unspecified, uncomplicated; Z79.899 Other long term (current) drug therapy
CPT/HCPCS: 36415; 80053; 82375; 83735; 85025; 99283